=== PATIENT | male | born 1970 | race Caucasian/White ===

== ENCOUNTER 2019-07-21 16:10 | Emergency (ER) | payer OTHER ==
[~2019-07-21] VITALS: Ht 188 cm; Wt 74.4 kg
== END 2019-07-21 17:13 | disposition home or self-care (01) ==
LOC: ED 16:10
DX: K76.9 Liver disease, unspecified (principal); R04.2 Hemoptysis; F10.129 Alcohol abuse with intoxication, unspecified; Y90.8 Blood alcohol level of 240 mg/100 ml or more; I10 Essential (primary) hypertension; Z85.05 Personal history of malignant neoplasm of liver; F17.200 Nicotine dependence, unspecified, uncomplicated; Z88.6 Allergy status to analgesic agent
CPT/HCPCS: 80053; 81001; 83690; 85025; 85610; 85730; 99285; G0480

== ENCOUNTER 2020-04-22 18:44 | Emergency (ER) | payer OTHER ==
[~2020-04-22] VITALS: Ht 188 cm; Wt 70.3 kg
--- OUTSIDE RECORDS SUMMARY | 2020-04-22 18:48 | XMS ---
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 Rupesh has no Care Guidelines for this patient. Shazia VISIT COUNT (12 MO.) 2 [facility] TOTAL 2 NOTE: Visits indicate total known visits. ED/C VISIT TRACKING (12 MO.) 04/22/2020 18:45 [facility] [place] TYPE: Emergency COMPLAINT: - VOMITING 07/21/2019 16:[address] [facility] [place] TYPE: Emergency COMPLAINT: - INTOXICATED DIAGNOSES: - Allergy status to analgesic agent status - Liver disease, unspecified - Alcohol abuse with intoxication, unspecified - Essential (primary) hypertension - Blood alcohol level of 240 mg/100 ml or more - Cough - Hemoptysis - Personal history of malignant neoplasm of liver - Nicotine dependence, unspecified, uncomplicated INPATIENT VISIT TRACKING (12 MO.) No inpatient visits to display in this time frame [email or web address]
[2020-04-22] MEDS ORDERED: REGLAN10 MG PO (23:41)
[2020-04-22] MEDS ORDERED: BACLOFEN10 MG PO (23:41)
== END 2020-04-22 23:54 | disposition home or self-care (01) ==
LOC: ED 18:44
DX: R06.6 Hiccough (principal); I10 Essential (primary) hypertension; F17.200 Nicotine dependence, unspecified, uncomplicated; Z88.6 Allergy status to analgesic agent
CPT/HCPCS: 74177; 80053; 81001; 83690; 85025; 96375; 99284-25; J1200; J2405; J2765; J7030; Q9967

== ENCOUNTER 2020-08-28 06:25 | Emergency (ER) | payer OTHER ==
[~2020-08-28] VITALS: Ht 188 cm; Wt 72.6 kg
[~2020-08-28 06:25] MED LIST: BACLOFEN10 MG PO; REGLAN10 MG PO
--- OUTSIDE RECORDS SUMMARY | 2020-08-28 06:28 | XMS ---
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 Rupesh has no Care Guidelines for this patient. Shazia VISIT COUNT (12 MO.) 2 [facility] TOTAL 2 NOTE: Visits indicate total known visits. ED/C VISIT TRACKING (12 MO.) [facility]2020 [facility] [place] [place] [facility] COMPLAINT: - RIB INJ 04/22/2020 18:45 [facility] [place] TYPE: Emergency COMPLAINT: - VOMITING DIAGNOSES: - Nicotine dependence, unspecified, uncomplicated - Allergy status to analgesic agent - Essential (primary) hypertension - Vomiting, unspecified - Hiccough INPATIENT VISIT TRACKING (12 MO.) No inpatient visits to display in this time frame [email or web address]
[2020-08-28] MEDS ORDERED: NORCO 5-325 TA1 EACH PO (07:00)
== END 2020-08-28 07:05 | disposition home or self-care (01) ==
LOC: ED 06:25
DX: S22.32XA Fracture of one rib, left side, initial encounter for closed fracture (principal); I10 Essential (primary) hypertension; Z85.05 Personal history of malignant neoplasm of liver; F17.200 Nicotine dependence, unspecified, uncomplicated; Z88.6 Allergy status to analgesic agent; W22.8XXA Striking against or struck by other objects, initial encounter
CPT/HCPCS: 71101; 99283-25

== ENCOUNTER 2021-01-27 09:14 | Emergency (ER) | payer OTHER ==
[~2021-01-27] VITALS: Ht 188 cm; Wt 72.6 kg
[~2021-01-27 09:14] MED LIST changes: +NORCO 5-325 TA1 EACH PO
--- OUTSIDE RECORDS SUMMARY | 2021-01-27 09:18 | XMS ---
PreManage Notification: QUINTON HARVEY Security Cotton Ball Bagger Events No recent Security Events currently on file CRITERIA MET - Group Notification CARE PROVIDERS There are no care providers on record at this time. Rupesh has no Care Guidelines for this patient. Care History Medical/Surgical 08/30/[address] [facility] - PHONE NUMBER [phone] IS NO LONGER A WORKING NUMBER. - PATIENT WOULD BENEFIT FROM ESTABLISHING CARE WITH A PROVIDER- PLEASE REFER PATIENT TO WALK IN CLINIC FOR NON EMERGENT MEDICAL CONCERNS. E.D. VISIT COUNT (12 MO.) 3 [facility] TOTAL 3 NOTE: Visits indicate total known visits. ED/UCC VISIT TRACKING (12 MO.) 01/27/2021 09:15 [facility] [place] TYPE: Emergency COMPLAINT: - LT KNEE PAIN 08/28/2020 06:25 [facility] TYPE: Emergency COMPLAINT: - RIB INJ DIAGNOSES: - Allergy status to analgesic agent - Allergy status to analgesic agent - Fracture of one rib, left side, initial encounter for closed fracture - Striking against or struck by other objects, initial encounter - Pleurodynia - Essential (primary) hypertension - Nicotine dependence, unspecified, uncomplicated - Personal history of malignant neoplasm of liver 04/22/2020 18:45 [facility] TYPE: Emergency COMPLAINT: - VOMITING DIAGNOSES: - Nicotine dependence, unspecified, uncomplicated - Allergy status to analgesic agent - Essential (primary) hypertension - Vomiting, unspecified - Hiccough INPATIENT VISIT TRACKING (12 MO.) No inpatient visits to display in this time frame [email or web address]
== END 2021-01-27 10:12 | disposition home or self-care (01) ==
LOC: ED 09:14
DX: S80.212A Abrasion, left knee, initial encounter (principal); V27.4XXA Motorcycle driver injured in collision with fixed or stationary object in traffic accident, initial encounter; I10 Essential (primary) hypertension; F17.200 Nicotine dependence, unspecified, uncomplicated; Z88.6 Allergy status to analgesic agent; Z85.05 Personal history of malignant neoplasm of liver
CPT/HCPCS: 73560; 99283-25

== ENCOUNTER → 2022-04-04 | Emergency (ER) | payer OTHER ==
[~2022-04-04] VITALS: Ht 188 cm; Wt 72.6 kg
[~2022-04-04] MED LIST changes: +CHLORDIAZEPOXID25 MG PO
--- OUTSIDE RECORDS SUMMARY | 2022-04-04 12:32 | XMS ---
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 Care History Medical/Surgical 08/30/2020 [facility] - PHONE NUMBER [phone] IS NO LONGER A WORKING NUMBER. - PATIENT WOULD BENEFIT FROM ESTABLISHING CARE WITH A PROVIDER- PLEASE REFER PATIENT TO WALK IN CLINIC FOR NON EMERGENT MEDICAL CONCERNS. EShahbaz. VISIT COUNT (12 MO.) [address] [place] [address] TOTAL 1 NOTE: Visits indicate total known visits. ED/UCC VISIT TRACKING (12 MO.) 04/04/2022 12:25 [facility] [place] TYPE: Emergency COMPLAINT: - HEART RACING, SHAKING INPATIENT VISIT TRACKING (12 MO.) No inpatient visits to display in this time frame [email or web address]
--- NOTE | 2022-04-06 14:49 | EKG ---
[facility] [address] [facility] [place] [address] Signed Sinus tachycardia Cannot rule out Anterior infarct , age undetermined Abnormal ECG When compared with ECG of 28-MAR-2017 08:27, premature ventricular complexes are no longer present Vent. rate has increased BY 39 BPM T wave inversion now evident in Anterior leads QT has lengthened Confirmed by NICOLAS PATEL MD ([id number]) on 04/06/2022 2:48:54 PM Electronically Signed By: NICOLAS PATEL MD 04/06/22 1449 PATIENT NAME: QUINTON HARVEY Electrocardiogram DATE OF : 74 PHYSICIAN: NICOLAS PATEL MD REPORT #: [id number] REPORT IS CONFIDENTIAL AND NOT TO BE RELEASED WITHOUT AUTHORIZATION
== END ==
LOC: ED 12:24 → CCU 12:26 → ED 12:26
DX: F15.10 Other stimulant abuse, uncomplicated (principal); F10.10 Alcohol abuse, uncomplicated; R44.3 Hallucinations, unspecified; I10 Essential (primary) hypertension; Z85.05 Personal history of malignant neoplasm of liver; F17.200 Nicotine dependence, unspecified, uncomplicated; Z88.8 Allergy status to other drugs, medicaments and biological substances
CPT/HCPCS: 36415; 71045; 80053; 83690; 83735; 85025; 87502; 93005; 93010; 96361; 96374; 96375; 99285-25; G0480; J2060; J2405; J7030; U0003

== ENCOUNTER 2022-04-06 07:18 | Emergency (ER) | payer OTHER ==
[~2022-04-06] VITALS: Ht 188 cm; Wt 72.6 kg
[~2022-04-06 07:18] MED LIST changes: -CHLORDIAZEPOXID25 MG PO
--- OUTSIDE RECORDS SUMMARY | 2022-04-06 07:26 | XMS ---
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 Care History Medical/Surgical 08/30/2020 [facility] - PHONE NUMBER [phone] IS NO LONGER A WORKING NUMBER. - PATIENT WOULD BENEFIT FROM ESTABLISHING CARE WITH A PROVIDER- PLEASE REFER PATIENT TO WALK IN CLINIC FOR NON EMERGENT MEDICAL CONCERNS. Shazia VISIT COUNT (12 MO.) 2 [facility] TOTAL 2 NOTE: Visits indicate total known visits. ED/UCC VISIT TRACKING (12 MO.) 04/06/2022 07:20 [facility] [place] TYPE: Emergency COMPLAINT: - ALLEDGED WORMS 04/04/2022 12:25 [facility] [place] TYPE: Emergency COMPLAINT: - ENCEPHALOPATHY INPATIENT VISIT TRACKING (12 MO.) 04/04/2022 12:26 [facility] [place] TYPE: Observation COMPLAINT: - ENCEPHALOPATHY [email or web address]
[2022-04-06] MEDS ORDERED: CHLORDIAZEPOXID25 MG PO (09:31)
== END 2022-04-06 09:42 | disposition home or self-care (01) ==
LOC: ED 07:18
DX: F10.10 Alcohol abuse, uncomplicated (principal); F15.10 Other stimulant abuse, uncomplicated; I10 Essential (primary) hypertension; Z85.05 Personal history of malignant neoplasm of liver; F17.200 Nicotine dependence, unspecified, uncomplicated; Z79.82 Long term (current) use of aspirin; Y90.0 Blood alcohol level of less than 20 mg/100 ml
CPT/HCPCS: 36415; 80053; 81001; 83735; 85025; 96374; 99284-25; G0480; J3411; J7030

== ENCOUNTER 2022-05-24 07:05 | Emergency (ER) | payer OTHER ==
[~2022-05-24] VITALS: Ht 188 cm; Wt 72.6 kg
[~2022-05-24 07:05] MED LIST changes: +CHLORDIAZEPOXID25 MG PO
--- OUTSIDE RECORDS SUMMARY | 2022-05-24 07:08 | XMS ---
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 - Patient with suicidal and/or homicidal ideations eloped. - Patient eloped with IV in place. Details: PATIENT LEFT AMA CRITERIA MET - Group Notification CARE PROVIDERS MADDI KELLY Nurse Practitioner: 01/29/2021-Current PHONE: [phone] Rupesh has no Care Guidelines for this patient. Care History Medical/Surgical 08/30/2020 [facility] - PHONE NUMBER [phone] IS NO LONGER A WORKING NUMBER. - PATIENT WOULD BENEFIT FROM ESTABLISHING CARE WITH A PROVIDER- PLEASE REFER PATIENT TO WALK IN CLINIC FOR NON EMERGENT MEDICAL CONCERNS. E.D. VISIT COUNT (12 MO.) 3 [facility] TOTAL 3 NOTE: Visits indicate total known visits. ED/UCC VISIT TRACKING (12 MO.) 05/24/2022 07:06 [facility] [place] TYPE: Emergency COMPLAINT: - ABD PAIN, N/V 04/06/2022 07:20 [facility] [place] TYPE: Emergency COMPLAINT: - ALLEDGED WORMS DIAGNOSES: - Essential (primary) hypertension - Alcohol abuse, uncomplicated - Personal history of malignant neoplasm of liver - Blood alcohol level of less than 20 mg/100 ml - Other stimulant abuse, uncomplicated - Nicotine dependence, unspecified, uncomplicated - detention (current) use of aspirin 04/04/2022 12:25 [facility] [place] TYPE: Emergency COMPLAINT: - ENCEPHALOPATHY DIAGNOSES: - Nicotine dependence, unspecified, uncomplicated - Allergy status to other drugs, medicaments and biological substances - Essential (primary) hypertension - Personal history of malignant neoplasm of liver - Contact with and (suspected) exposure to COVID-19 - Other stimulant abuse, uncomplicated - Alcohol abuse, uncomplicated - Hallucinations, unspecified INPATIENT VISIT TRACKING (12 MO.) 04/04/2022 12:26 [facility] [place] TYPE: Observation COMPLAINT: - ENCEPHALOPATHY [email or web address]
[2022-05-24] MEDS ORDERED: OMEPRAZOLE20 MG PO (09:13)
[2022-05-24] MEDS ORDERED: ONDANSETRON ODT8 MG PO (09:13)
== END 2022-05-24 09:59 | disposition home or self-care (01) ==
LOC: ED 07:05
DX: K29.01 Acute gastritis with bleeding (principal); F10.10 Alcohol abuse, uncomplicated; I10 Essential (primary) hypertension; F17.200 Nicotine dependence, unspecified, uncomplicated; Z88.6 Allergy status to analgesic agent
CPT/HCPCS: 36415; 80053; 83690; 85025; 85060; 96374; 96375; 99284-25; C9113; J2060; J2405; J7030

== ENCOUNTER 2022-11-05 03:38 | Emergency (ER) | payer OTHER ==
[~2022-11-05] VITALS: Ht 188 cm; Wt 70.0 kg
[~2022-11-05 03:38] MED LIST changes: +OMEPRAZOLE20 MG PO; +ONDANSETRON ODT8 MG PO
--- OUTSIDE RECORDS SUMMARY | 2022-11-05 03:40 | XMS ---
PreManage Notification: QUINTON HARVEY Security Vp Rheumatology Events 1 event(s) in the past 18 months Most recent security events: Elopement at [facility] 04/04/2022 12:25 - Patient eloped before treatment completed. - Patient with suicidal and/or homicidal ideations eloped. - Patient eloped with IV in place. Details: PATIENT LEFT AMA CRITERIA MET - Group Notification CARE PROVIDERS MADDI KELLY Nurse Practitioner: 01/29/2021-Current PHONE: [phone] Rupesh has no Care Guidelines for this patient. Care History Medical/Surgical 08/30/2020 [facility] - PHONE NUMBER [phone] IS NO LONGER A WORKING NUMBER. - PATIENT WOULD BENEFIT FROM ESTABLISHING CARE WITH A PROVIDER- PLEASE REFER PATIENT TO WALK IN CLINIC FOR NON EMERGENT MEDICAL CONCERNS. E.D. VISIT COUNT (12 MO.) 4 [facility] TOTAL 4 NOTE: Visits indicate total known visits. ED/UCC VISIT TRACKING (12 MO.) 11/05/2022 03:38 [facility] [place] TYPE: Emergency COMPLAINT: - LEFT ARM INJ 05/24/2022 07:06 [facility] [place] TYPE: Emergency COMPLAINT: - ABD PAIN, N/V DIAGNOSES: - Essential (primary) hypertension - Alcohol abuse, uncomplicated - Nausea with vomiting, unspecified - Allergy status to analgesic agent - Nicotine dependence, unspecified, uncomplicated - Acute gastritis with bleeding 04/06/2022 07:20 [facility] [place] TYPE: Emergency COMPLAINT: - ALLEDGED WORMS DIAGNOSES: - Personal history of malignant neoplasm of liver - Essential (primary) hypertension - Nicotine dependence, unspecified, uncomplicated - Blood alcohol level of less than 20 mg/100 ml - Alcohol abuse, uncomplicated - 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 - Other stimulant abuse, uncomplicated 04/04/2022 12:25 [facility] [place] TYPE: Emergency COMPLAINT: - ENCEPHALOPATHY DIAGNOSES: - Essential (primary) hypertension - Nicotine dependence, unspecified, uncomplicated - Hallucinations, unspecified - Other stimulant abuse, uncomplicated - Personal history of malignant neoplasm of liver - Allergy status to other drugs, medicaments and biological substances - Alcohol abuse, uncomplicated - Contact with and (suspected) exposure to COVID-19 INPATIENT VISIT TRACKING (12 MO.) 04/04/2022 12:26 [facility] [place] TYPE: Observation COMPLAINT: - ENCEPHALOPATHY [email or web address]
== END 2022-11-05 04:48 | disposition home or self-care (01) ==
LOC: ED 03:38
DX: S50.12XA Contusion of left forearm, initial encounter (principal); F17.200 Nicotine dependence, unspecified, uncomplicated; W19.XXXA Unspecified fall, initial encounter; Y93.89 Activity, other specified; I10 Essential (primary) hypertension; Z91.199 Patient's noncompliance with other medical treatment and regimen due to unspecified reason; Z88.8 Allergy status to other drugs, medicaments and biological substances
CPT/HCPCS: 73090; 73140; 99283-25

== ENCOUNTER 2023-05-29 23:36 | Emergency (ER) | payer OTHER ==
[~2023-05-29] VITALS: Ht 188 cm; Wt 69.8 kg
--- OUTSIDE RECORDS SUMMARY | ~2023-05-29 | XMS | Continuity of Care Document ---
Demographics + + + | Address | [address] | | | [place] [address] | + + + | Preferred Language | Unknown | + + + | Marital Status | Never | + + + | Taoism Affiliation | Unknown | + + + | Race | White | + + + | Ethnic Group | Not or | + + + Author + + + | Author | [facility] | + + + | Organization | [facility] | + + + | Address | [address] | | | [place] [address] | + + + | Phone | | + + + Care Team Providers + + + + | Care School Library Media Specialist Name | Role | Phone | + + + + Unavailable | Unavailable | + + + + Unavailable | Unavailable | + + + + Unavailable | Unavailable | + + + + Allergies and Intolerances + + + + + + | date | description | facility | reaction | severity | + + + + + + | (no date) | Aspirin | [facility] | (no reaction) | (no severity) | | | [facility] | | | + + + + + + | (no date) | aspirin | [facility] | (no reaction) | (no severity) | | | [facility] | | | + + + + + + | (no date) | Aspirin | [facility] | (no reaction) | (no severity) | | | [facility] | | | + + + + + + | (no date) | Anaphylaxis | [facility] | (no reaction) | (no severity) | | | [facility] | | | + + + + + + | (no date) | Aspirin | [facility] | (no reaction) | (no severity) | | | [facility] | | | + + + + + + Encounters No information. Functional Status No information. Immunizations No information. Medications + + + + | date | description | facility | + + + + | 2020-04-22 00:00 [facility] | + + + + | 2022-05-24 00:00 | OMEPRAZOLE | [facility] | + + + + | 2020-04-22 00:00 | METOCLOPRAMIDE HCL | [facility] | + + + + | 2022-05-24 00:00 | ONDANSETRON | [facility] | + + + + | 2020-08-28 00:00 | HYDROCODONE | [facility] | | | BIT/ACETAMINOPHEN | | + + + + | 2022-04-06 00:00 | CHLORDIAZEPOXIDE HCL | [facility] | + + + + Problems + + + + | date | description | facility | + + + + | 2017-03-28 00:00 | Hypertension | [facility] | + + + + | 2017-03-28 00:00 | Hypertension | [facility] | + + + + | 2017-03-28 00:00 | Symptomatic premature | [facility] | | | ventricular contractions | | + + + + | 2017-03-28 00:00 | Symptomatic premature | [facility] | | | ventricular contractions | | + + + + | 2020-04-22 00:00 | Intractable hiccups | [facility] | + + + + | 2020-04-22 00:00 | Intractable hiccups | [facility] | + + + + | 2020-08-28 00:00 | Fracture of rib of left | [facility] | | | side | | + + + + | 2020-08-28 00:00 | Fracture of rib of left | [facility] | | | side | | + + + + | 2021-02-10 00:00 | Encounter for medical | [facility] | | | screening examination | | + + + + | 2021-02-10 00:00 | Encounter for medical | [facility] | | | screening examination | | + + + + | 2022-04-04 00:00 | Alcohol withdrawal | [facility] | | | syndrome | | + + + + | 2022-04-04 00:00 | Alcohol withdrawal | [facility] | | | syndrome | | + + + + | 2022-05-24 00:00 | Alcohol abuse | [facility] | + + + + | 2022-05-24 00:00 | Alcohol abuse | [facility] | + + + + | 2022-05-24 00:00 | Acute gastritis with | [facility] | | | hemorrhage | | + + + + | 2022-05-24 00:00 | Acute gastritis with | [facility] | | | hemorrhage | | + + + + | 2022-11-05 00:00 | Contusion | [facility] | + + + + Procedures No information. Results/Labs +--------+--------+ +---------+--------+---------+ | test | date | facility | value | unit | notes | +--------+--------+ +---------+--------+---------+ + + | Result panel 1 | + + + + + + + + + | | 2022-04-04 | [facility] | NEGATIVE | (missing) | (missing) | | (unavailable | 13:20 | [facility] | | | | + + + + + + + + + | Result panel 2 | + + + + + + + + + | | 2022-04-04 | [facility] | NEGATIVE | (missing) | (missing) | | (unavailable | 13:20 | [facility] | | | | + + + + + + + + + | Result panel 3 | + + + + + + + + + | | 2022-04-04 | [facility] | NEGATIVE | (missing) | (missing) | | (unavailable | 13:20 | [facility] | | | | + + + + + + + + + | Result panel 4 | + + + + + + + + + | | 2022-04-04 | [facility] | NEGATIVE | (missing) | (missing) | | (unavailable | 13:20 | [facility] | | | | + + + + + + + + + | Result panel 5 | + + + + + +-------+---------+ + | | 2022-04-06 | [facility] | 1.8 | mg/dL | (missing) | | (unavailable | 08:10 | [facility] | | | | + + + +-------+---------+ + + + | Result panel 6 | + + + + + +------+ + + | | 2022-04-06 | [facility] | <3 | (missing) | (missing) | | (unavailable | 08:10 | [facility] | | | | + + + +------+ + + + + | Result panel 7 | + + + + + +-------+ + + | | 2022-05-24 | [facility] | 3.3 | (missing) | (missing) | | (unavailable | 07:12 | [facility] | | | | + + + +-------+ + + + + | Result panel 8 | + + + + + +------+ + + | | 2022-05-24 | [facility] | 75 | (missing) | (missing) | | (unavailable | 07:12 | [facility] | | | | + + + +------+ + + + + | Result panel 9 | + + + + + +--------+ + + | | 2022-05-24 | [facility] | 35.9 | (missing) | (missing) | | (unavailable | 07:12 | [facility] | | | | + + + +--------+ + + + + | Result panel 10 | + + + + + +--------+ + + | | 2022-05-24 | [facility] | 41.6 | (missing) | (missing) | | (unavailable | 07:12 | [facility] | | | | + + + +--------+ + + + + | Result panel 11 | + + + + + +--------+ + + | | 2022-05-24 | [facility] | 17.4 | (missing) | (missing) | | (unavailable | 07:12 | [facility] | | | | + + + +--------+ + + + + | Result panel 12 | + + + + + +-------+ + + | | 2022-05-24 | [facility] | 1.2 | (missing) | (missing) | | (unavailable | 07:12 | [facility] | | | | + + + +-------+ + + + + | Result panel 13 | + + + + + +-------+ + + | | 2022-05-24 | [facility] | 3.9 | (missing) | (missing) | | (unavailable | 07:12 | [facility] | | | | + + + +-------+ + + + + | Result panel 14 | + + + + + +-------+---------+ + | | 2022-05-24 | [facility] | 105 | mg/dL | (missing) | | (unavailable | 07:12 | [facility] | | | | + + + +-------+---------+ + + + | Result panel 15 | + + + + + +-----+---------+ + | | 2022-05-24 | [facility] | 6 | mg/dL | (missing) | | (unavailable | 07:12 | [facility] | | | | + + + +-----+---------+ + + + | Result panel 16 | + + + + + +--------+---------+ + | | 2022-05-24 | [facility] | 0.94 | mg/dL | (missing) | | (unavailable | 07:12 | [facility] | | | | + + + +--------+---------+ + + + | Result panel 17 | + + + + + +------+ + + | | 2022-05-24 | [facility] | 99 | (missing) | (missing) | | (unavailable | 07:12 | [facility] | | | | + + + +------+ + + + + | Result panel 18 | + + + + + + + + + | | 2022-05-24 | [facility] | SEE COMMENT | (missing) | (missing) | | (unavailable | 07:12 | [facility] | | | | + + + + + + + + + | Result panel 19 | + + + + + +--------+ + + | | 2022-05-24 | [facility] | 6.38 | (missing) | (missing) | | (unavailable | 07:12 | [facility] | | | | + + + +--------+ + + + + | Result panel 20 | + + + + + +-------+ + + | | 2022-05-24 | [facility] | 138 | (missing) | (missing) | | (unavailable | 07:12 | [facility] | | | | + + + +-------+ + + + + | Result panel 21 | + + + + + +-------+ + + | | 2022-05-24 | [facility] | 4.2 | (missing) | (missing) | | (unavailable | 07:12 | [facility] | | | | + + + +-------+ + + + + | Result panel 22 | + + + + + +------+ + + | | 2022-05-24 | [facility] | 98 | (missing) | (missing) | | (unavailable | 07:12 | [facility] | | | | + + + +------+ + + + + | Result panel 23 | + + + + + +------+ + + | | 2022-05-24 | [facility] | 20 | (missing) | (missing) | | (unavailable | 07:12 | [facility] | | | | + + + +------+ + + + + | Result panel 24 | + + + + + +--------+ + + | | 2022-05-24 | [facility] | 24.2 | (missing) | (missing) | | (unavailable | 07:12 [facility] | | | | + + + +--------+ + + + + | Result panel 25 | + + + + + +-------+---------+ + | | 2022-05-24 | [facility] | 9.2 | mg/dL | (missing) | | (unavailable | 07:12 | [facility] | | | | + + + +-------+---------+ + + + | Result panel 26 | + + + + + +-------+ + + | | 2022-05-24 | [facility] | 8.5 | (missing) | (missing) | | (unavailable | 07:12 | [facility] | | | | + + + +-------+ + + + + | Result panel 27 | + + + + + +-------+ + + | | 2022-05-24 | [facility] | 4.4 | (missing) | (missing) | | (unavailable | 07:12 | [facility] | | | | + + + +-------+ + + + + | Result panel 28 | + + + + + +-------+ + + | | 2022-05-24 | [facility] | 4.1 | (missing) | (missing) | | (unavailable | 07:12 | [facility] | | | | + + + +-------+ + + + + | Result panel 29 | + + + + + +--------+ + + | | 2022-05-24 | [facility] | 4.52 | (missing) | (missing) | | (unavailable | 07:12 | [facility] | | | | + + + +--------+ + + + + | Result panel 30 | + + + + + +--------+ + + | | 2022-05-24 | [facility] | 1.07 | (missing) | (missing) | | (unavailable | 07:12 | [facility] | | | | + + + +--------+ + + + + | Result panel 31 | + + + + + +-------+ + + | | 2022-05-24 | [facility] | 0.7 | (missing) | (missing) | | (unavailable | 07:12 | [facility] | | | | + + + +-------+ + + + + | Result panel 32 | + + + + + +-------+ + + | | 2022-05-24 | [facility] | 106 | (missing) | (missing) | | (unavailable | 07:12 | [facility] | | | | + + + +-------+ + + + + | Result panel 33 | + + + + + +------+ + + | | 2022-05-24 | [facility] | 75 | (missing) | (missing) | | (unavailable | 07:12 | [facility] | | | | + + + +------+ + + + + | Result panel 34 | + + + + + +------+ + + | | 2022-05-24 | [facility] | 64 | (missing) | (missing) | | (unavailable | 07:12 | [facility] | | | | + + + +------+ + + + + | Result panel 35 | + + + + + +-------+ + + | | 2022-05-24 | [facility] | 258 | (missing) | (missing) | | (unavailable | 07:12 | [facility] | | | | + + + +-------+ + + + + | Result panel 36 | + + + + + +--------+ + + | | 2022-05-24 | [facility] | 14.8 | (missing) | (missing) | | (unavailable | 07:12 | [facility] | | | | + + + +--------+ + + + + | Result panel 37 | + + + + + +--------+ + + | | 2022-05-24 | [facility] | 44.0 | (missing) | (missing) | | (unavailable | 07:12 | [facility] | | | | + + + +--------+ + + + + | Result panel 38 | + + + + + +--------+ + + | | 2022-05-24 | [facility] | 97.2 | (missing) | (missing) | | (unavailable | 07:12 | [facility] | | | | + + + +--------+ + + + + | Result panel 39 | + + + + + +--------+ + + | | 2022-05-24 | [facility] | 32.8 | (missing) | (missing) | | (unavailable | 07:12 | [facility] | | | | + + + +--------+ + + + + | Result panel 40 | + + + + + +--------+ + + | | 2022-05-24 | [facility] | 33.7 | (missing) | (missing) | | (unavailable | 07:12 | [facility] | | | | + + + +--------+ + + + + | Result panel 41 | + + + + + +--------+ + + | | 2022-05-24 | [facility] | 13.6 | (missing) | (missing) | | (unavailable | 07:12 | [facility] | | | | + + + +--------+ + + Social History No information. Vital Signs + + + +---------+ | date | measurement | value | units | + + + +---------+ | 2022-04-04 00:00 | BMI | 20.5 | kg/m2 | + + + +---------+ | 2022-04-04 00:00 | BP_diastolic | 94 | mmHg | + + + +---------+ | 2022-04-04 00:00 | BP_systolic | 127 | mmHg | + + + +---------+ | 2022-04-04 00:00 | heart_rate | 97 | /min | + + + +---------+ | 2022-04-04 00:00 | height_metric | 187.96 | cm | + + + +---------+ | 2022-04-04 00:00 | height_standard | 74 | in | + + + +---------+ | 2022-04-04 00:00 | o2_saturation | 98 | % | + + + +---------+ | 2022-04-04 00:00 | respiration_rate | 21 | /min | + + + +---------+ | 2022-04-04 00:00 | temperature_metric | 37 | C | | | | | | + + + +---------+ | 2022-04-04 00:00 | | 98.6 | F | | | temperature_standar | | | | | d | | | + + + +---------+ | 2022-04-04 00:00 | weight_metric | 72.57 | kg | + + + +---------+ | 2022-04-04 00:00 | weight_standard | 159.99 | lb | + + + +---------+ | 2022-04-04 00:00 | weight_standard | 160 | lb | + + + +---------+ | 2022-04-06 00:00 | BMI | 20.5 | kg/m2 | + + + +---------+ | 2022-04-06 00:00 | BP_diastolic | 78 | mmHg | + + + +---------+ | 2022-04-06 00:00 | BP_systolic | 128 | mmHg | + + + +---------+ | 2022-04-06 00:00 | heart_rate | 98 | /min | + + + +---------+ | 2022-04-06 00:00 | height_metric | 187.96 | cm | + + + +---------+ | 2022-04-06 00:00 | height_standard | 74 | in | + + + +---------+ | 2022-04-06 00:00 | o2_saturation | 100 | % | + + + +---------+ | 2022-04-06 00:00 | respiration_rate | 18 | /min | + + + +---------+ | 2022-04-06 00:00 | temperature_metric | 36.78 | C | | | | | | + + + +---------+ | 2022-04-06 00:00 | | 98.2 | F | | | temperature_standar | | | | | d | | | + + + +---------+ | 2022-04-06 00:00 | weight_metric | 72.57 | kg | + + + +---------+ | 2022-04-06 00:00 | weight_standard | 159.99 | lb | + + + +---------+ | 2022-04-06 00:00 | weight_standard | 160 | lb | + + + +---------+ | 2022-05-24 00:00 | BMI | 20.5 | kg/m2 | + + + +---------+ | 2022-05-24 00:00 | BP_diastolic | 88 | mmHg | + + + +---------+ | 2022-05-24 00:00 | BP_systolic | 155 | mmHg | + + + +---------+ | 2022-05-24 00:00 | heart_rate | 66 | /min | + + + +---------+ | 2022-05-24 00:00 | height_metric | 187.96 | cm | + + + +---------+ | 2022-05-24 00:00 | height_standard | 74 | in | + + + +---------+ | 2022-05-24 00:00 | o2_saturation | 98 | % | + + + +---------+ | 2022-05-24 00:00 | respiration_rate | 16 | /min | + + + +---------+ | 2022-05-24 00:00 | temperature_metric | 36.83 | C | | | | | | + + + +---------+ | 2022-05-24 00:00 | | 98.3 | F | | | temperature_standar | | | | | d | | | + + + +---------+ | 2022-05-24 00:00 | weight_metric | 72.57 | kg | + + + +---------+ | 2022-05-24 00:00 | weight_standard | 159.99 | lb | + + + +---------+ | 2022-05-24 00:00 | weight_standard | 160 | lb | + + + +---------+ | 2022-11-05 00:00 | BMI | 19.8 | kg/m2 | + + + +---------+ | 2022-11-05 00:00 | BP_diastolic | 75 | mmHg | + + + +---------+ | 2022-11-05 00:00 | BP_systolic | 114 | mmHg | + + + +---------+ | 2022-11-05 00:00 | heart_rate | 72 | /min | + + + +---------+ | 2022-11-05 00:00 | height_metric | 187.96 | cm | + + + +---------+ | 2022-11-05 00:00 | height_standard | 74 | in | + + + +---------+ | 2022-11-05 00:00 | o2_saturation | 98 | % | + + + +---------+ | 2022-11-05 00:00 | respiration_rate | 14 | /min | + + + +---------+ | 2022-11-05 00:00 | temperature_metric | 36.61 | C | | | | | | + + + +---------+ | 2022-11-05 00:00 | | 97.9 | F | | | temperature_standar | | | | | d | | | + + + +---------+ | 2022-11-05 00:00 | weight_metric | 70 | kg | + + + +---------+ | 2022-11-05 00:00 | weight_standard | 154.32 | lb | + + + +---------+ | 2022-11-05 00:00 | weight_standard | 154.33 | lb | + + + +---------+"
--- OUTSIDE RECORDS SUMMARY | ~2023-05-29 | XMS | Continuity of Care Document ---
Demographics + + + | Address | [address] | | | [place] [address] | + + + | Preferred Language | Unknown | + + + | Marital Status | Never | + + + | Episcopalian Affiliation | Unknown | + + + | Race | White | + + + | Ethnic Group | Not or | + + + Author + + + | Author | [facility] | + + + | Organization | [facility] | + + + | Address | [address] | | | [place] [address] | + + + | Phone | | + + + Care Team Providers + + + + | Care Mems Integration Engineer Name | Role | Phone | + [...] | 2020-04-22 00:00 | [facility] | + + + + | 2022-05-24 00:00 | OMEPRAZOLE | [facility] | + + + + | 2020-04-22 00:00 | METOCLOPRAMIDE HCL | [facility] | + + + + | 2022-05-24 00:00 | ONDANSETRON | [facility] | + + + + | 2020-08-28 00:00 | HYDROCODONE | [facility] | | | BIT/ACETAMINOPHEN | | + + + + | 2022-04-06 00:00 | CHLORDIAZEPOXIDE HCL | [facility] | + + + + Problems + + + + | date | description | facility | + + + + | 2017-03-28 00:00 | Hypertension | [facility] | + + + + | 2017-03-28 00:00 | Hypertension | [facility] | + + + + | 2017-03-28 00:00 | Symptomatic premature | [facility] | | | ventricular contractions | | + + + + | 2017-03-28 00:00 | Symptomatic premature | [facility] | | | ventricular contractions | | + + + + | 2020-04-22 00:00 | Intractable hiccups | [facility] | + + + + | 2020-04-22 00:00 | Intractable hiccups | [facility] | + + + + | 2020-08-28 00:00 | Fracture of rib of left | [facility] | | | side | | + + + + | 2020-08-28 00:00 | Fracture of rib of left | [facility] | | | side | | + + + + | 2021-02-10 00:00 | Encounter for medical | [facility] | | | screening examination | | + + + + | 2021-02-10 00:00 | Encounter for medical | [facility] | | | screening examination | | + + + + | 2022-04-04 00:00 | Alcohol withdrawal | [facility] | | | syndrome | | + + + + | 2022-04-04 00:00 | Alcohol withdrawal | [facility] | | | syndrome | | + + + + | 2022-05-24 00:00 | Alcohol abuse | [facility] | + + + + | 2022-05-24 00:00 | Alcohol abuse | [facility] | + + + + | 2022-05-24 00:00 | Acute gastritis with | [facility] | | | hemorrhage | | + + + + | 2022-05-24 00:00 | Acute gastritis with | [facility] | | | hemorrhage | | + + + + | 2022-11-05 00:00 | Contusion | [facility] | + + + + Procedures [...]
--- OUTSIDE RECORDS SUMMARY | 2023-05-29 23:39 | XMS ---
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 - Patient with suicidal and/or homicidal ideations eloped. - Patient eloped with IV in place. Details: PATIENT LEFT AMA CRITERIA MET - Group Notification CARE PROVIDERS -Elsie- Dentist: Fire Sprinkler Inspector [facility] PHONE: [phone] MADDI KELLY Nurse Practitioner: 01/29/2021-Current PHONE: [phone] Rupesh has no Care Guidelines for this patient. Care History Medical/Surgical 08/30/2020 [facility] - PHONE NUMBER [phone] IS NO LONGER A WORKING NUMBER. - PATIENT WOULD BENEFIT FROM ESTABLISHING CARE WITH A PROVIDER- PLEASE REFER PATIENT TO WALK IN CLINIC FOR NON EMERGENT MEDICAL CONCERNS. E.D. VISIT COUNT (12 MO.) 2 [facility] TOTAL 2 NOTE: Visits indicate total known visits. ED/UCC VISIT TRACKING (12 MO.) 05/29/2023 23:36 [facility] [place] TYPE: Emergency COMPLAINT: - FALL 11/05/2022 03:38 [facility] [place] TYPE: Emergency COMPLAINT: - LEFT ARM INJ DIAGNOSES: - Activity, other specified - Allergy status to other drugs, medicaments and biological substances - Contusion of left forearm, initial encounter - Essential (primary) hypertension - Nicotine dependence, unspecified, uncomplicated - Pain in left forearm - Patient's noncompliance with other medical treatment and regimen due to unspecified reason - Unspecified fall, initial encounter INPATIENT VISIT TRACKING (12 MO.) No inpatient visits to display in this time frame [email or web address]
[2023-05-30 01:15] VITALS: BP 122/84
== END 2023-05-30 01:15 | disposition home or self-care (01) ==
LOC: ED 23:36
DX: F10.129 Alcohol abuse with intoxication, unspecified (principal); S00.03XA Contusion of scalp, initial encounter; S80.212A Abrasion, left knee, initial encounter; S80.211A Abrasion, right knee, initial encounter; I10 Essential (primary) hypertension; F17.200 Nicotine dependence, unspecified, uncomplicated; Z88.6 Allergy status to analgesic agent; Z85.05 Personal history of malignant neoplasm of liver; Y90.8 Blood alcohol level of 240 mg/100 ml or more; W19.XXXA Unspecified fall, initial encounter
CPT/HCPCS: 36415; 70450; 72125; 80053; 85025; 99284-25; G0480

== ENCOUNTER 2023-06-05 09:14 | Emergency (ER) | payer OTHER ==
[~2023-06-05] VITALS: Ht 188 cm; Wt 70.9 kg
--- OUTSIDE RECORDS SUMMARY | ~2023-06-05 | XMS | Continuity of Care Document ---
Demographics + + + | Address | [address] | | | [place] [address] | + + + | Preferred Language | Unknown | + + + | Marital Status | Never | + + + | Tenriism Affiliation | Unknown | + + + | Race | White | + + + | Ethnic Group | Not or | + + + Author + + + | Author | [facility] | + + + | Organization | [facility] | + + + | Address | [address] | | | [place] [address] | + + + | Phone | | + + + Care Team Providers + + + + | Care Wild Life Photographer Name | Role | Phone | + [...] + | (no date) | aspirin | [facility] | (no reaction) | (no severity) | + + + + + + [...] + | 2020-04-22 00:00 | BACLOFEN | [facility] | + + + + | 2022-05-24 00:00 | OMEPRAZOLE | [facility] | + + + + | 2020-04-22 00:00 | METOCLOPRAMIDE HCL | [facility] | + + + + | 2022-05-24 00:00 | ONDANSETRON | [facility] | + + + + | 2020-08-28 00:00 | HYDROCODONE | [facility] | | | BIT/ACETAMINOPHEN | | + + + + | 2022-04-06 00:00 | CHLORDIAZEPOXIDE HCL | [facility] | + + + + Problems + + + + | date | description | facility | + + + + | 2017-03-28 00:00 | Hypertension | [facility] | + + + + | 2017-03-28 00:00 | Hypertension | [facility] | + + + + | 2017-03-28 00:00 | Hypertension | [facility] | + + + + | 2017-03-28 00:00 | Symptomatic premature | [facility] | | | ventricular contractions | | + + + + | 2017-03-28 00:00 | Symptomatic premature | [facility] | | | ventricular contractions | | + + + + | 2017-03-28 00:00 | Symptomatic premature | [facility] | | | ventricular contractions | | + + + + | 2020-04-22 00:00 | Intractable hiccups | [facility] | + + + + | 2020-04-22 00:00 | Intractable hiccups | [facility] | + + + + | 2020-04-22 00:00 | Intractable hiccups | [facility] | + + + + | 2020-08-28 00:00 | Fracture of rib of left | [facility] | | | side | | + + + + | 2020-08-28 00:00 | Fracture of rib of left | [facility] | | | side | | + + + + | 2020-08-28 00:00 | Fracture of rib of left | [facility] | | | side | | + + + + | 2021-02-10 00:00 | Encounter for medical | [facility] | | | screening examination | | + + + + | 2021-02-10 00:00 | Encounter for medical | [facility] | | | screening examination | | + + + + | 2021-02-10 00:00 | Encounter for medical | [facility] | | | screening examination | | + + + + | 2022-04-04 00:00 | Alcohol withdrawal | [facility] | | | syndrome | | + + + + | 2022-04-04 00:00 | Alcohol withdrawal | [facility] | | | syndrome | | + + + + | 2022-04-04 00:00 | Alcohol withdrawal | [facility] | | | syndrome | | + + + + | 2022-05-24 00:00 | Alcohol abuse | [facility] | + + + + | 2022-05-24 00:00 | Alcohol abuse | [facility] | + + + + | 2022-05-24 00:00 | Alcohol abuse | [facility] | + + + + | 2022-05-24 00:00 | [facility]ritis with | [facility] | | | hemorrhage | | + + + + | 2022-05-24 00:00 | Acute gastritis with | [facility] | | | hemorrhage | | + + + + | 2022-05-24 00:00 | Acute gastritis with | [facility] | | | hemorrhage | | + + + + | 2022-11-05 00:00 | Contusion | [facility] | + + + + | 2022-11-05 00:00 | Contusion | [facility] | + + + + | 2023-05-29 23:36 | ALCOHOL ABUSE WITH | [facility] | | | INTOXICATION, UNSPECIFIED | | + + + + | 2023-05-29 23:36 | NICOTINE DEPENDENCE, | [facility] | | | UNSPECIFIED, UNCOMPLICATED | | + + + + | 2023-05-29 23:36 | Essential (primary) | [facility] | | | hypertension | | + + + + | 2023-05-29 23:36 | CERVICALGIA | [facility] | + + + + | 2023-05-29 23:36 | CONTUSION OF SCALP, | [facility] | | | INITIAL ENCOUNTER | | + + + + | 2023-05-29 23:36 | ABRASION, RIGHT KNEE, | [facility] | | | INITIAL ENCOUNTER | | + + + + | 2023-05-29 23:36 | ABRASION, LEFT KNEE, | [facility] | | | INITIAL ENCOUNTER | | + + + + | 2023-05-29 23:36 | UNSPECIFIED FALL, INITIAL | [facility] | | | ENCOUNTER | | + + + + | 2023-05-29 23:36 | BLOOD ALCOHOL LEVEL OF 240 | [facility] | | | MG/100 ML OR MORE | | + + + + | 2023-05-29 23:36 | PERSONAL HISTORY OF | [facility] | | | MALIGNANT NEOPLASM OF LIVER | | | | | | + + + + | 2023-05-29 23:36 | ALLERGY STATUS TO | [facility] | | | ANALGESIC AGENT STATUS | | + + + + | 2023-05-30 00:00 | Alcoholic intoxication | [facility] | + + + + | 2023-05-30 00:00 | Abrasion of scalp | [facility] | + + + + | 2023-05-30 00:00 | Abrasions of multiple | [facility] | | | sites | | + + + + | 2023-05-30 00:00 | Fall | [facility] | + + + + Procedures No [...] 8 | + + + + + + [...] 12 | + + + + + +--------+ + + | | 2022-05-24 | [facility] | 97.2 | (missing) | (missing) | | (unavailable | 07:12 | [facility] | | | | + + + +--------+ + + + + | Result panel 13 | + + + + + +--------+ + + | | 2022-05-24 | [facility] | 32.8 | (missing) | (missing) | | (unavailable | 07:12 | [facility] | | | | + + + +--------+ + + + + | Result panel 14 | + + + + + +--------+ + + | | 2022-05-24 | [facility] | 33.7 | (missing) | (missing) | | (unavailable | 07:12 | [facility] | | | | + + + +--------+ + + + + | Result panel 15 | + + + + + +--------+ + + | | 2022-05-24 | [facility] | 13.6 | (missing) | (missing) | | (unavailable | 07:12 | [facility] | | | | + + + +--------+ + + + + | Result panel 16 | + + + + + +------+ + + | | 2022-05-24 | [facility] | 75 | (missing) | (missing) | | (unavailable | 07:12 | [facility] | | | | + + + +------+ + + + + | Result panel 17 | + + + + + +--------+ + + | | 2022-05-24 | [facility] | 35.9 | (missing) | (missing) | | (unavailable | 07:12 | [facility] | | | | + + + +--------+ + + + + | Result panel 18 | + + + + + +--------+ [...] (missing) | (missing) | | (unavailable | :12 | [facility] | | | | | [...] 22 | + + + + + +-------+---------+ + | | 2022-05-24 | [facility] | 105 | mg/dL | (missing) | | (unavailable | 07:12 | [facility] | | | | + + + +-------+---------+ + + + | Result panel 23 | + + + + + +-----+---------+ + | | 2022-05-24 | [facility] | 6 | mg/dL | (missing) | | (unavailable | :12 | [facility] | | | | + + + +-----+---------+ + + + | Result panel 24 | + + + + + +--------+---------+ + | | 2022-05-24 | [facility] | 0.94 | mg/dL | (missing) | | (unavailable | 07:12 | [facility] | | | | + + + +--------+---------+ + + + | Result panel 25 | + + + + + +------+ + + | | 2022-05-24 | [facility] | 99 | (missing) | (missing) | | (unavailable | 07:12 | [facility] | | | | + + + +------+ + + + + | Result panel 26 | + + + + + +--------+ [...] 29 | + + + + + +------+ + + | | 2022-05-24 | [facility] | 98 | (missing) | (missing) | | (unavailable | 07:12 | [facility] | | | | + + + +------+ + + + + | Result panel 30 | + + + + + +------+ + + | | 2022-05-24 | [facility] | 20 | (missing) | (missing) | | (unavailable | 07:12 | [facility] | | | | + + + +------+ + + + + | Result panel 31 | + + + + + +--------+ + + | | 2022-05-24 | [facility] | 24.2 | (missing) | (missing) | | (unavailable | 07:12 | [facility] | | | | + + + +--------+ + + + + | Result panel 32 | + + + + + +-------+---------+ + | | 2022-05-24 | [facility] | 9.2 | mg/dL | (missing) | | (unavailable | 07:12 | [facility] | | | | + + + +-------+---------+ + + + | Result panel 33 | + + + + + +-------+ + + | | 2022-05-24 | [facility] | 8.5 | (missing) | (missing) | | (unavailable | 07:12 | [facility] | | | | + + + +-------+ + + + + | Result panel 34 | + + + + + +-------+ [...] 37 | + + + + + +-------+ + + | | 2022-05-24 | [facility] | 0.7 | (missing) | (missing) | | (unavailable | 07:12 | [facility] | | | | + + + +-------+ + + + + | Result panel 38 | + + + + + +-------+ + + | | 2022-05-24 | [facility] | 106 | (missing) | (missing) | | (unavailable | 07:12 | [facility] | | | | + + + +-------+ + + + + | Result panel 39 | + + + + + +------+ + + | | 2022-05-24 | [facility] | 75 | (missing) | (missing) | | (unavailable | 07:12 | [facility] | | | | + + + +------+ + + + + | Result panel 40 | + + + + + +------+ + + | | 2022-05-24 | [facility] | 64 | (missing) | (missing) | | (unavailable | 07:12 | [facility] | | | | + + + +------+ + + + + | Result panel 41 | + + + + + +-------+ + + | | 2022-05-24 | [facility] | 258 | (missing) | (missing) | | (unavailable | 07:12 | [facility] | | | | + + + +-------+ + + + + | Result panel 42 | + + + + + +-------+ + + | | 2023-05-30 | [facility] | 3.8 | (missing) | (missing) | | (unavailable | 00:06:07 | [facility] | | | | + + + +-------+ + + + + | Result panel 43 | + + + + + +--------+ + + | | 2023-05-30 | [facility] | 47.7 | (missing) | (missing) | | (unavailable | 00::07 | [facility] | | | | + + + +--------+ + + + + | Result panel 44 | + + + + + +--------+ + + | | 2023-05-30 | [facility] | 33.3 | (missing) | (missing) | | (unavailable | 00::07 | [facility] | | | | + + + +--------+ + + + + | Result panel 45 | + + + + + +--------+ + + | | 2023-05-30 | [facility] | 16.7 | (missing) | (missing) | | (unavailable | 00:06:07 | [facility] | | | | + + + +--------+ + + + + | Result panel 46 | + + + + + +-------+ + + | | 2023-05-30 | [facility] | 1.1 | (missing) | (missing) | | (unavailable | 00:06:07 | [facility] | | | | + + + +-------+ + + + + | Result panel 47 | + + + + + +-------+ + + | | 2023-05-30 | [facility] | 1.2 | (missing) | (missing) | | (unavailable | 00:06:07 | [facility] | | | | + + + +-------+ + + + + | Result panel 48 | + + + + + +-------+---------+ + | | 2023-05-30 | [facility] | 107 | mg/dL | (missing) | | (unavailable | 00:06:07 | [facility] | | | | + + + +-------+---------+ + + + | Result panel 49 | + + + + + +-----+---------+ + | | 2023-05-30 | [facility] | 7 | mg/dL | (missing) | | (unavailable | 00:06:07 | [facility] | | | | + + + +-----+---------+ + + + | Result panel 50 | + + + + + +--------+---------+ + | | 2023-05-30 | [facility] | 0.87 | mg/dL | (missing) | | (unavailable | 00:06:07 | [facility] | | | | + + + +--------+---------+ + + + | Result panel 51 | + + + + + +-------+ + + | | 2023-05-30 | [facility] | 105 | (missing) | (missing) | | (unavailable | 00:06:07 | [facility] | | | | + + + +-------+ + + + + | Result panel 52 | + + + + + +--------+ + + | | 2023-05-30 | [facility] | 8.04 | (missing) | (missing) | | (unavailable | 00:06:07 | [facility] | | | | + + + +--------+ + + + + | Result panel 53 | + + + + + +--------+ + + | | 2023-05-30 | [facility] | 4.08 | (missing) | (missing) | | (unavailable | 00:06:07 | [facility] | | | | + + + +--------+ + + + + | Result panel 54 | + + + + + +-------+ + + | | 2023-05-30 | [facility] | 135 | (missing) | (missing) | | (unavailable | 00:06:07 | [facility] | | | | + + + +-------+ + + + + | Result panel 55 | + + + + + +-------+ + + | | 2023-05-30 | [facility] | 3.6 | (missing) | (missing) | | (unavailable | 00::07 | [facility] | | | | + + + +-------+ + + + + | Result panel 56 | + + + + + +------+ + + | | 2023-05-30 | [facility] | 99 | (missing) | (missing) | | (unavailable | 00::07 | [facility] | | | | + + + +------+ + + + + | Result panel 57 | + + + + + +------+ + + | | 2023-05-30 | [facility] | 26 | (missing) | (missing) | | (unavailable | 00:06:07 | [facility] | | | | + + + +------+ + + + + | Result panel 58 | + + + + + +--------+ + + | | 2023-05-30 | [facility] | 13.6 | (missing) | (missing) | | (unavailable | 00:06:07 [facility] | | | | + + + +--------+ + + + + | Result panel 59 | + + + + + +-------+---------+ + | | 2023-05-30 | [facility] | 8.5 | mg/dL | (missing) | | (unavailable | 00::07 | [facility] | | | | + + + +-------+---------+ + + + | Result panel 60 | + + + + + +-------+ + + | | 2023-05-30 | [facility] | 7.4 | (missing) | (missing) | | (unavailable | 00:06:07 | [facility] | | | | + + + +-------+ + + + + | Result panel 61 | + + + + + +-------+ + + | | 2023-05-30 | [facility] | 4.0 | (missing) | (missing) | | (unavailable | 00::07 | [facility] | | | | + + + +-------+ + + + + | Result panel 62 | + + + + + +-------+ + + | | 2023-05-30 | [facility] | 3.4 | (missing) | (missing) | | (unavailable | 00::07 | [facility] | | | | + + + +-------+ + + + + | Result panel 63 | + + + + + +--------+ + + | | 2023-05-30 | [facility] | 1.18 | (missing) | (missing) | | (unavailable | 00::07 | [facility] | | | | + + + +--------+ + + + + | Result panel 64 | + + + + + +--------+ + + | | 2023-05-30 | [facility] | 13.4 | (missing) | (missing) | | (unavailable | 00:06:07 [facility] | | | | + + + +--------+ + + + + | Result panel 65 | + + + + + +-------+ + + | | 2023-05-30 | [facility] | 0.4 | (missing) | (missing) | | (unavailable | 00:06:07 [facility] | | | | + + + +-------+ + + + + | Result panel 66 | + + + + + +------+ + + | | 2023-05-30 | [facility] | 52 | (missing) | (missing) | | (unavailable | 00:06:07 | [facility] | | | | + + + +------+ + + + + | Result panel 67 | + + + + + +------+ + + | | 2023-05-30 | [facility] | 31 | (missing) | (missing) | | (unavailable | 00:06:07 | [facility] | | | | + + + +------+ + + + + | Result panel 68 | + + + + + +------+ + + | | 2023-05-30 | [facility] | 51 | (missing) | (missing) | | (unavailable | 00:06:07 | [facility] | | | | + + + +------+ + + + + | Result panel 69 | + + + + + +-------+ + + | | 2023-05-30 | [facility] | 369 | (missing) | (missing) | | (unavailable | 00:06:07 | [facility] | | | | + + + +-------+ + + + + | Result panel 70 | + + + + + +--------+ + + | | 2023-05-30 | [facility] | 39.9 | (missing) | (missing) | | (unavailable | 00:06:07 | [facility] | | | | + + + +--------+ + + + + | Result panel 71 | + + + + + +--------+ + + | | 2023-05-30 | [facility] | 97.7 | (missing) | (missing) | | (unavailable | 00:06:07 | [facility] | | | | + + + +--------+ + + + + | Result panel 72 | + + + + + +--------+ + + | | 2023-05-30 | [facility] | 32.8 | (missing) | (missing) | | (unavailable | 00:06:07 [facility] | | | | + + + +--------+ + + + + | Result panel 73 | + + + + + +--------+ + + | | 2023-05-30 | [facility] | 33.6 | (missing) | (missing) | | (unavailable | 00:06:07 | [facility] | | | | + + + +--------+ + + + + | Result panel 74 | + + + + + +--------+ + + | | 2023-05-30 | [facility] | 13.4 | (missing) | (missing) | | (unavailable | 00:06:07 [facility] | | | | + + + +--------+ + + + + | Result panel 75 | + + + + + +-------+ + + | | 2023-05-30 | [facility] | 130 | (missing) | (missing) | | (unavailable | 00:06:07 | [facility] | | | | + + + +-------+ + + Social History No information. Vital [...] 154.33 | lb | + + + +---------+ | 2023-05-29 00:00 | BMI | 19.8 | kg/m2 | + + + +---------+ | 2023-05-29 00:00 | height_metric | 187.96 | cm | + + + +---------+ | 2023-05-29 00:00 | height_standard | 74 | in | + + + +---------+ | 2023-05-29 00:00 | weight_metric | 69.85 | kg | + + + +---------+ | 2023-05-29 00:00 | weight_standard | 153.99 | lb | + + + +---------+ | 2023-05-29 00:00 | weight_standard | 154 | lb | + + + +---------+ | 2023-05-30 00:00 | BP_diastolic | 84 | mmHg | + + + +---------+ | 2023-05-30 00:00 | BP_systolic | 122 | mmHg | + + + +---------+ | 2023-05-30 00:00 | heart_rate | 56 | /min | + + + +---------+ | 2023-05-30 00:00 | o2_saturation | 98 | % | + + + +---------+ | 2023-05-30 00:00 | respiration_rate | 14 | /min | + + + +---------+ | 2023-05-30 00:00 | temperature_metric | 36.78 | C | | | | | | + + + +---------+ | 2023-05-30 00:00 | | 98.2 | F | | | temperature_standar | | | | | d | | | + + + +---------+"
--- OUTSIDE RECORDS SUMMARY | ~2023-06-05 | XMS | Continuity of Care Document ---
Demographics + + + | Address | [address] | | | [place] [address] | + + + | Preferred Language | Unknown | + + + | Marital Status | Never | + + + | Confucianism Affiliation | Unknown | + + + | Race | White | + + + | Ethnic Group | Not or | + + + Author + + + | Author | [facility] | + + + | Organization | [facility] | + + + | Address | [address] | | | [place] [address] | + + + | Phone | | + + + Care Team Providers + + + + | Care Supervisor Special Services Name | Role | Phone | + [...] + | 2020-04-22 00:00 | BACLOFEN | [facility] | + + + + | 2022-05-24 00:00 | OMEPRAZOLE | [facility] | + + + + | 2020-04-22 00:00 | METOCLOPRAMIDE HCL | [facility] | + + + + | 2022-05-24 00:00 | ONDANSETRON | [facility] | + + + + | 2020-08-28 00:00 | HYDROCODONE | [facility] | | | BIT/ACETAMINOPHEN | | + + + + | 2022-04-06 00:00 | CHLORDIAZEPOXIDE HCL | [facility] | + + + + Problems + + + + | date | description | facility | + + + + | 2017-03-28 00:00 | Hypertension | [facility] | + + + + | 2017-03-28 00:00 | Hypertension | [facility] | + + + + | 2017-03-28 00:00 | Hypertension | [facility] | + + + + | 2017-03-28 00:00 | Symptomatic premature | [facility] | | | ventricular contractions | | + + + + | 2017-03-28 00:00 | Symptomatic premature | [facility] | | | ventricular contractions | | + + + + | 2017-03-28 00:00 | Symptomatic premature | [facility] | | | ventricular contractions | | + + + + | 2020-04-22 00:00 | Intractable hiccups | [facility] | + + + + | 2020-04-22 00:00 | Intractable hiccups | [facility] | + + + + | 2020-04-22 00:00 | Intractable hiccups | [facility] | + + + + | 2020-08-28 00:00 | Fracture of rib of left | [facility] | | | side | | + + + + | 2020-08-28 00:00 | Fracture of rib of left | [facility] | | | side | | + + + + | 2020-08-28 00:00 | Fracture of rib of left | [facility] | | | side | | + + + + | 2021-02-10 00:00 | Encounter for medical | [facility] | | | screening examination | | + + + + | 2021-02-10 00:00 | Encounter for medical | [facility] | | | screening examination | | + + + + | 2021-02-10 00:00 | Encounter for medical | [facility] | | | screening examination | | + + + + | 2022-04-04 00:00 | Alcohol withdrawal | [facility] | | | syndrome | | + + + + | 2022-04-04 00:00 | Alcohol withdrawal | [facility] | | | syndrome | | + + + + | 2022-04-04 00:00 | Alcohol withdrawal | [facility] | | | syndrome | | + + + + | 2022-05-24 00:00 | Alcohol abuse | [facility] | + + + + | 2022-05-24 00:00 | Alcohol abuse | [facility] | + + + + | 2022-05-24 00:00 | Alcohol abuse | [facility] | + + + + | 2022-05-24 00:00 | [facility] with | [facility] | | | hemorrhage | | + + + + | 2022-05-24 00:00 | Acute gast[facility] with | [facility] | | | hemorrhage | | + + + + | 2022-05-24 00:00 | Acute gastritis with | [facility] | | | hemorrhage | | + + + + | 2022-11-05 00:00 | Contusion | [facility] | + + + + | 2022-11-05 00:00 | Contusion | [facility] | + + + + | [...] | 2023-05-30 00:00 | Alcoholic intoxication | [facility] | + + + + | 2023-05-30 00:00 | Abrasion of scalp | [facility] | + + + + | 2023-05-30 00:00 | Abrasions of multiple | [facility] | | | sites | | + + + + | 2023-05-30 00:00 | Fall | [facility] | + + + + Procedures [...] (missing) | | (unavailable | 13:20 | [facility] | | | | | ) | [...]
--- OUTSIDE RECORDS SUMMARY | 2023-06-05 09:22 | XMS ---
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 - Patient with suicidal and/or homicidal ideations eloped. - Patient eloped with IV in place. Details: PATIENT LEFT AMA CRITERIA MET - Group Notification - [facility] - 2 Visits in 30 Days CARE PROVIDERS -Elsie- Dentist: Cement Kil[employer] Operator [facility] PHONE: [phone] MADDI KELLY Nurse Practitioner: 01/29/2021-Current PHONE: [phone] Rupesh has no Care Guidelines for this patient. Care History Medical/Surgical 08/30/2020 [facility] - PHONE NUMBER [phone] IS NO LONGER A WORKING NUMBER. - PATIENT WOULD BENEFIT FROM ESTABLISHING CARE WITH A PROVIDER- PLEASE REFER PATIENT TO WALK IN CLINIC FOR NON EMERGENT MEDICAL CONCERNS. E.D. VISIT COUNT (12 MO.) 3 [facility] TOTAL 3 NOTE: Visits indicate total known visits. ED/UCC VISIT TRACKING (12 MO.) 06/05/2023 09:15 [facility] [place] TYPE: Emergency COMPLAINT: - NECK PAIN, HEAD INJURY 05/29/2023 23:36 [facility] [place] TYPE: Emergency COMPLAINT: - FALL DIAGNOSES: - Abrasion, left knee, initial encounter - Abrasion, right knee, initial encounter - Alcohol abuse with intoxication, unspecified - Allergy status to analgesic agent - Blood alcohol level of 240 mg/100 ml or more - Cervicalgia - Contusion of scalp, initial encounter - Essential (primary) hypertension - Nicotine dependence, unspecified, uncomplicated - Personal history of malignant neoplasm of liver - Unspecified fall, initial encounter 11/05/2022 03:38 [facility] [place] TYPE: Emergency [...] visits to display in this time frame [email or web address]
[2023-06-05] MEDS ORDERED: CYCLOBENZAPRINE10 MG PO (10:26)
[2023-06-05] MEDS ORDERED: MELOXICAM15 MG PO (10:26)
[2023-06-05 10:31] VITALS: BP 113/102
== END 2023-06-05 10:34 | disposition home or self-care (01) ==
LOC: ED 09:14
DX: S06.0XAA Concussion with loss of consciousness status unknown, initial encounter (principal); S16.1XXA Strain of muscle, fascia and tendon at neck level, initial encounter; I10 Essential (primary) hypertension; F17.200 Nicotine dependence, unspecified, uncomplicated; Z88.6 Allergy status to analgesic agent; W01.10XA Fall on same level from slipping, tripping and stumbling with subsequent striking against unspecified object, initial encounter
CPT/HCPCS: 96372; 99283; J1885; J3360